=== PATIENT | female | born 1935 | race Caucasian/White ===

== ENCOUNTER 2016-08-28 12:41 | Day surgery (SDC) | payer OTHER ==
[2016-08-28] VITALS (7 sets, daily range): BP systolic 126–156; BP diastolic 52–88; PULSE 63–84; RESP 14–22; O2SAT 85–100
[~2016-08-28] VITALS: Ht 152.4 cm; Wt 74.3 kg
--- NOTE | 2016-08-28 08:55 | PCM.HPANE ---
Patient Data Surgeon Admitting Provider: Attending Provider:Lora Jaramillo MD Primary Care Physician:Izabella Victoria PA-C Other Provider: Reason for Visit Cystocele Ht/WT & BMI Height (Feet): 5 Weight (Kilograms): 71.49 Body Mass Index 30.00 Allergies Coded Allergies: Sulfa (Sulfonamide Antibiotics) (Verified Allergy, Unknown, 08/26/16) ciprofloxacin (Verified Allergy, Unknown, 08/26/16) Uncoded Allergies: METAL (Allergy, Severe, RASH, 08/28/16) STATES PROBABLY NICKEL Past Anesthesia History Anesthesia History: Denies:: Anesthesia Reactions Diabetes History Hx Diabetes?: No MRSA MRSA: No Medications Blood Thinner: Aspirin Hypertension Medication: No Reported Medications Hydrocodone-Acetaminophen 7.5-325 mg 1 Each Tablet0.5-1 Tab PO PRN #60 08/28/16 [vitamin d3] No Conflict CheckUnknown Dose DAILY 08/26/16 Cyanocobalamin/Folic Acid (Vitamin R23-Fftih Acid Tablet)1 Each Tablet1 Each PO DAILY 08/26/16 Folic Acid/Mv,Fe,Other Min (One Daily For Women Tablet)1 Each Tablet1 Each PO DAILY 08/26/16 Flaxseed Oil ([place]-3 Flaxseed Oil)1,000 Mg Capsule1,000 Mg PO DAILY 08/26/16 Aspirin 81 Mg [id number] Mg PO DAILY Ref 0 08/26/16 Amitriptyline 50 Mg Tab50 Mg PO HS Ref 0 08/26/16 Discontinued Reported Medications [calcium] No Conflict Check20 Mcg DAILY 08/26/16 History History of ENT Problems?: No Hx of Heart Problems?: Yes Cardiovascular History: Denies:: Abdominal Aortic Aneurism Atrial Fibrillation Hypertension Hx of Respiratory Problem?: No Respiratory History: Denies:: Asthma Cough Oxygen Administration Use of C-PAP Machine Neurological History: Denies:: Alzheimer's Disease CVA Headaches Multiple Sclerosis Parkinson's Disease Seizures Hx of GI Problems?: Yes Gastrointestinal History: Positive for:: Gall Bladder Disease (removed) Other GI Pertinent History: recent hx diarrhea- c difficile ruled out Hx of Problems?: Yes Genitourinary History: Positive for:: Urinary Tract Infection (recurrent ) Denies:: Kidney Stones Other Pertinent History: cystocele current admission problem Female Hx: Denies:: Currently (hysterectomy ) Skin History: Denies:: History Skin Disorders? Pressure Ulcers Hx Musculoskeletal Problems?: Yes Musculoskeletal History: Positive for:: Joint Replacement (bilateral knees) Osteoarthritis Hx of Psycho/Social Problems?: No Psycho Social History: Denies:: Anxiety Hx Depression Hx Surgeries?: Yes (tonsil, appe, breast redux, ramone, hyst, bladder sling, rivera knee repl) Hx Any Other Health Problems?: Yes Other History: Denies:: Thyroid Disease Hx Diabetes: No Hx Alcohol Use: NoHx Substance Use: NoHave You Smoked inLast 12 mo: No Stop/Bang Treated for Sleep Apnea?: No Do You Have a CPAP Machine?: No S-Snoring: Do You Snore Loudly: Yes T-Tired: feel tired, fatigued: No O-Obsered: Observed not breath: No P-Blood Pressure: treated: No B- Body Mass Index > 35 kg/m2: No A- Age over 50: Yes N- Neck Large Circumference: No G- Gender Male: No URIAH Total Score: 2 URIAH Risk Assessment: Low Risk, <3 Yes Risk Assessment Category Category 1A: Patient has history of documented sleep apnea, and HAS NOT received any narcotic, sedative or anesthesia administration during this stay. Category 1B: Patient has history of documented sleep apnea, and HAS received any narcotic , sedative or anesthesia administration during this stay Category 2: Patient has SUSPECTED Obstructive Sleep Apnea, and HAS received any narcotic , sedative or anesthesia administration during this stay. Category 3: Patient has SUSPECTED Obstructive Sleep Apnea and HAS NOT received narcotic, sedative or anesthesia administration during this stay. Category 4: Outpatient in Procedural Areas with known sleep apnea or who screen positive for High Risk via the STOP/BANG questionnaire. Exam Exam General Appearance: Alert, Oriented X3, Cooperative, No Acute Distress HEENT/AIRWAY: MP 2 Lungs: Clear to Auscultation, Normal Air Movement Heart: Exam Unremarkable, Regular Rate/Rhythm, No Murmurs/Rubs/Gallops Plan Impression Patient chart reviewed, patient interviewed and anesthestic plan with risks, benefits, and alternatives discussed, and informed consent obtained. ASA Physical Status: ASA2 Mod Systemic Disease Anesthetic Plan: GA Bene/Risks/Altern/Consents: Yes HP Complete Prior to Induction: Yes Dion Chopra MD Aug 28, 2016 08:55
[~2016-08-28 12:41] MED LIST: AMT50T PO; ASPI-973 PO; CYAN1TAB42 PO; Clindamycin 600 mg/50 mL D5W IV ONE; FLAX100038 PO; FOLI-75 PO; calcium; vitamin d3
[2016-08-28] MEDS ORDERED: Ketamine 10 mg/mL 20 mL Inj ONE (12:42)
[2016-08-28] MEDS ORDERED: Dexamethasone 4 mg/mL Inj ONE (12:42)
[2016-08-28] MEDS ORDERED: Clindamycin 600 mg/50 mL D5W Premix IV ONE ×2 (12:42→13:03)
[2016-08-28] MEDS ORDERED: Ondansetron 2 mg/mL 2 mL Inj ONE (12:42)
[2016-08-28] MEDS ORDERED: fentaNYL-PF 50 mCg/mL 2 mL Inj ONE (12:42)
[2016-08-28] MEDS: Lactated Ringer's 1,000 ML IV SCH ×2 (12:56→14:52)
[2016-08-28] MEDS ORDERED: Clindamycin 900 mg/50 mL D5W Premix IV ONE (13:02)
[2016-08-28] MEDS ORDERED: HYDR-3825 PO (13:18)
[2016-08-28] MEDS ORDERED: Lactated Ringer's 1,000 ML IV SCH (15:13)
[2016-08-28] MEDS ORDERED: Lactated Ringer's 500 ML IV PRN (15:13)
[2016-08-28] MEDS ORDERED: EPHEDrine Sulfate 50 mg/mL Inj IVPUSH PRN (15:15)
[2016-08-28] MEDS ORDERED: fentaNYL-PF 50 mCg/mL 2 mL Inj IVPUSH PRN (15:15)
[2016-08-28] MEDS ORDERED: HYDROmorphone 1 mg/mL Inj IVPUSH PRN (15:15)
[2016-08-28] MEDS ORDERED: Dexamethasone 4 mg/mL Inj IVPUSH PRN (15:15)
[2016-08-28] MEDS ORDERED: Phenylephrine 10,000 mCg/mL Inj IVPUSH PRN (15:15)
[2016-08-28] MEDS ORDERED: MetoCLOpramide 5 mg/mL 2 mL Inj IVPUSH PRN (15:15)
[2016-08-28] MEDS ORDERED: Ondansetron 2 mg/mL 2 mL Inj IVPUSH PRN (15:15)
[2016-08-28] MEDS ORDERED: Bupivacaine 0.5%/EPI 50 mL Inj INFILTRATE ONE (15:18)
[2016-08-28] MEDS ORDERED: Estrogens Conjugated 30 Gm Vaginal Cream VAGINAL ONE (15:18)
[2016-08-28] MEDS ORDERED: HYDROcodone-APAP 5-325 mg Tablet PO PRN (16:50)
[2016-08-28] MEDS ORDERED: Ondansetron 8 mg ODT Tablet PO PRN (16:50)
--- NOTE | 2016-08-29 07:41 | PCM.ANEP1 ---
Post Anesthesia Phase 1 PACU Phase 1 Assessment Anesthetic Administered: GA Level of Alertness: Awake, talking MAJOR's with Equal Strength: Yes Pain: No Nausea or Vomiting: No Oxygen Delivery: Simple Mask Lungs: Clear to Auscultation, Normal Air Movement Dermatome Level: Full Sensation Dion Chopra MD Aug 29, 2016 07:41
--- NOTE | 2016-08-29 07:42 | PCM.ANEP2 ---
Post Anesthesia Evaluation ASA/CMS Post Anesthesia VS in Patient's Normal Range?: Yes Resp Stable; Airway Patent?: Yes CV Function & Hydration Stable: Yes Mental Status Recovered?: Yes Pain control Satisfactory?: Yes N/V Control Satisfactory?: Yes Dion Chopra MD Aug 29, 2016 07:42
--- NOTE | 2016-08-29 10:31 | OP ---
[address] [address] OPERATIVE REPORT PATIENT: BREANA RICKS : 1935 MR#: [id number] ADMIT: 08/28/2016 JOB ID: [id number] DATE OF SURGERY: 08/28/2016 PROCEDURE NAME: Colpocleisis and cystoscopy. SURGEON: Lora Jaramillo M.D. ANESTHESIA: General. PREOPERATIVE DIAGNOSIS(ES): Vaginal vault prolapse post hysterectomy. POSTOPERATIVE DIAGNOSIS(ES): Vaginal vault prolapse post hysterectomy. INDICATIONS: The patient is an 81-year-old woman with longstanding history of [id number] pelvic prolapse very much bothered failing conservative measures, not at all sexually active, desiring the simplest most likely to get her feeling better procedure. She is counseled about numerous options and ultimately elected the obliterative procedure of colpocleisis. PROCEDURE IN DETAIL: After appropriate informed consent was obtained, the patient was brought to the operating room. She received IV antibiotics prior to onset of the procedure. SCDs were placed. Adequate general anesthesia induced. She was carefully placed in the dorsal lithotomy position. All pressure points carefully padded. Cleaned, prepped, and draped in the usual sterile fashion. A Rupesh retractor was used. Weighted speculum was used. A 16-Yemeni Serrano catheter was placed and the bladder was drained and then clamped out of the field. We used sterile injectable saline to hydrodissect an area of both the anterior and posterior vaginal atkinson, rectangular in nature, leaving several centimeters at the apex of the vagina. The flaps of thin vaginal mucosa were removed leaving two opposing rectangles. We then proceeded to reapproximate the anterior to the posterior portion of the vaginal mucosa with interrupted Vicryl 2-0 sutures. Hemostasis was quite good. There was minimal bleeding. Once we had completed the reapproximation of the anterior to the posterior, we were left with a right-sided and left-sided columns of 4-5 cm in height and a relatively normal appearance of her introitus once the retractor itself was removed. Hemostasis was good. We had irrigated out copiously with saline throughout the course of the case. We then removed the Serrano catheter, performed cystoscopy, able to see a good support. No evidence of a cystocele. The right and left ureteral orifices were easily visualized and good efflux was seen from both ureters. The urine itself was clear. No blood in the bladder whatsoever. The bladder was drained again. We replaced a Serrano catheter and some sterile vaginal packing was lightly placed against the procedures, the area of interest, and this was covered with Premarin cream. Mesh panties were used for support. She was awakened, taken in stable condition to the postanesthesia care unit.
== END 2016-08-28 23:59 | disposition home or self-care (01) ==
LOC: SAS 12:41
PROVIDERS: ATTEND Urology
DX: N99.3 Prolapse of vaginal vault after hysterectomy (principal); R35.0 Frequency of micturition; N94.89 Other specified conditions associated with female genital organs and menstrual cycle; D17.71 Benign lipomatous neoplasm of kidney; M19.90 Unspecified osteoarthritis, unspecified site; Z87.440 Personal history of urinary (tract) infections; I10 Essential (primary) hypertension; E78.5 Hyperlipidemia, unspecified; M54.5 Low back pain; M54.2 Cervicalgia; E66.9 Obesity, unspecified; Z68.31 Body mass index [BMI] 31.0-31.9, adult
CPT/HCPCS: 57120; J1100; J2405; J3010; J7120